=== PATIENT | male | born 1980 | race Caucasian/White ===

== ENCOUNTER 2018-04-09 22:27 | Emergency (ER) | payer SELFPAY ==
[~2018-04-09] VITALS: Ht 188 cm; Wt 107.5 kg
[~2018-04-09 22:27] MED LIST: CEPH-38 PO; DEXL60CA PO; PRM25T PO
--- OUTSIDE RECORDS SUMMARY | 2018-04-09 22:37 | XMS REPORT ---
Author Author SIVA MARLEY [facility] Address [address] [place] [address] Care Team Providers Care Special Duty Nurse Name Role Phone AYAKA SIVA Unavailable PROBLEMS Type Condition ICD9-CM Code [id number] Code Onset Dates Condition Status SNOMED Code Problem Hypothyroidism E03.9 Active 76728677 Problem GERD (gastroesophageal reflux disease) K21.9 Active 918409405 Problem Rhinitis J31.0 Active 41436310 Problem Elevated blood pressure I10 Active [id number] ALLERGIES No Known Allergies ENCOUNTERS Encounter Location Date Diagnosis [facility] [address] [facility] [id number] [id number] Dec, Hypothyroidism E03.9 ; GERD (gastroesophageal reflux disease) K21.9 ; General medical examination Z00.00 ; Elevated blood pressure I10 and Rhinitis J31.0 [facility] [address] [facility] [id number] [address] Dec, IMMUNIZATIONS No Known Immunizations SOCIAL HISTORY Never Assessed REASON FOR VISIT Establish Care- hypothyroidism, sinus drainage, feels like left ear has fluid in it Trae [facility]ONE PLAN OF CARE Activity Details Follow Up 3 months or as indicated by lab Reason:[facility] SIGNS Height 74 in 2017-12-22 Weight 237.6 lbs 2017-12-22 Temperature 96.8 degrees Fahrenheit 2017-12-22 Heart Rate 86 bpm 2017-12-22 Respiratory Rate 16 2017-12-22 BMI 30.50 kg/m2 2017-12-22 Blood pressure systolic 142 mmHg 2017-12-22 Blood pressure diastolic 82 mmHg 2017-12-22 MEDICATIONS Medication Instructions Dosage Frequency Start Date End Date Duration Status Zyrtec Allergy 10 MG Orally Once a day 1 tablet 24h Active Protonix 40 MG Orally Once a day 1 tablet 24h Active Singulair 10 mg Orally at bedtime 1 tablet Dec, 30 day(s) Active Levothyroxine Sodium 200 MCG Orally Once a day 1 tablet on an empty stomach in the morning 24h Active RESULTS No Results PROCEDURES No Known procedures INSTRUCTIONS MEDICATIONS ADMINISTERED No Known Medications MEDICAL (GENERAL) HISTORY Type Description Date Medical History Hypothyroidism Medical History GERD Surgical History tonsillectomy and adenoidectomy Surgical History FB removed from right foot
[2018-04-10] MEDS ORDERED: RX-CYCLOBENZAPRINE 10 MG (FLEXERIL) TAB PPK#3 PO STA (01:28)
[2018-04-10] MEDS ORDERED: KETOROLAC 60 MG/2 ML VIAL IM ONE (01:30)
--- NOTE | 2018-04-10 01:34 | ED Back Pain ---
General Chief Complaint: Back Problems Stated Complaint: BACK PAIN, RT ARM NUMB Nursing Triage Note: PT STATES HE HAS A HX OF BACK INJURUES FROM WEIGHT LIFTING AND WORK RELATED INJURIES, STATES TODAY AT WORK HE WAS HAVING DIFFICULTY GRASPING OBJECTS AT WORK AND EXPERIENCED NUMBNESS TO THE RIGHT ARM AND PAIN TO HIS LOWER BACK, DENIES CHEST PAIN OR SOB. Nursing Sepsis Screen: No Definite Risk Source of Information: Patient Exam Limitations: No Limitations History of Present Illness Date Seen by Provider: Apr 10, 2018 Time Seen by Provider: 01:20 Initial Comments Patient presents to ER by private conveyance by walking in with chief complaint that he's had some upper back pain for several years. Last night while at work at the [employer] he hurt his back and is progressively gotten worse. At time had some paresthesias in his right arm, tingling. No dropping anything or numbness. No bowel or bladder incontinence. No saddle anesthesia. This is the same, back pain is had but this is as bad as she's ever had it. He has not taken any Tylenol Motrin topical creams back brace, heat ice etc. He is working on getting a primary care doctor in April. He denies a cough, fevers chills Allergies and Home Medications Allergies Coded Allergies: No Known Drug Allergies (Unverified , 02/16/11) Home Medications Cephalexin Monohydrate 500 Mg Capsule, 1 EACH PO TID Prescribed by: BRITNI NUNEZ on 02/16/112012 Dexlansoprazole 60 Mg Jose Juan., 60 MG PO DAILY, (Reported) Promethazine Hcl 25 Mg Tablet, 1 TAB PO PRN, (Reported) Patient Home Medication List Home Medication List Reviewed: Yes Review of Systems Constitutional: No chills, No diaphoresis EENTM: No ear discharge, No ear pain Respiratory: No cough, No short of breath Cardiovascular: No chest pain, No edema Gastrointestinal: No abdominal pain, No constipation Past Csxinfx-Pqzdyx-Hgafdf Hx Patient Social History Alcohol Use: Denies Use Recreational Drug Use: No Smoking Status: Current Everyday Smoker Recent Foreign Travel: No Contact w/Someone Who Travel: No Recent Infectious Disease Expo: No Physical Exam Vital Signs Vital Signs - First Documented 04/09/18 23:34 Temp 98.2 Pulse 80 Resp 20 B/P (MAP) 135/99 (111) Pulse Ox 99 O2 Delivery Room Air Capillary Refill : Less Than 3 Seconds Height, Weight, BMI Height: 6'2.00" Weight: 237lbs. oz. 107.671992qa; BMI Method:Stated General Appearance: No Apparent Distress, WD/WN HEENT: PERRL/EOMI, Normal ENT Inspection, Pharynx Normal, Moist Mucous Membranes Neck: Full Range of Motion, Normal Inspection Cardiovascular: Regular Rate, Rhythm, No Edema Respiratory: Chest Non Tender, Lungs Clear, Normal Breath Sounds, No Accessory Muscle Use, No Respiratory Distress Back: Other (bilateral paraspinous muscle tenderness to palpation in the thoracic and lumbar spine) Extremity: Normal Capillary Refill, Normal Inspection Neurologic/Psychiatric: Alert, Oriented x3, No Motor/Sensory Deficits, Normal Mood/Affect, cell biology scientist II-XII Norm as Tested Progress/Results/Core Measures Results/Orders My Orders Orders - IHSAN COLEMAN Ketorolac Injection (Toradol Injection) (04/10/18 01:30) Vital Signs/I&O 04/09/18 23:34 Temp 98.2 Pulse 80 Resp 20 B/P (MAP) 135/99 (111) Pulse Ox 99 O2 Delivery Room Air Blood Pressure Mean: 111 Progress Progress Note : Time: 01:32 Progress Note No red flag signs. He has some paraspinous muscle strain/sprain as well as pain related to her work. We are starting him on NSAIDs, Tylenol, heat, back brace, muscle relaxants and establish care with primary care. Shot of Toradol and take- home pack of cyclobenzaprine. Departure Impression Primary Impression: Back strain Qualified Codes: S39.012A - Strain of muscle, fascia and tendon of lower back , initial encounter Additional Impression: Thoracic back pain Qualified Codes: M54.6 - Pain in thoracic spine; G89.29 - Other chronic pain Disposition: 01 HOME, SELF-CARE Condition: Stable Departure-Patient Inst. Decision time for Depature: 01:33 Referrals: NO,LOCAL PHYSICIAN (PCP/Family) Primary Care Physician Patient Instructions: Upper Back Pain (DC) Add. Discharge Instructions: Apply some heat to your back, get some rest. Massage or a visit to the chiropractor to be useful. Wear a back brace. Use Tylenol 1000 mg every 8 hours as needed for breakthrough back pain. If you have muscle spasms in your back you can use the cyclobenzaprine 1 tablet every 8 hours but will cause drowsiness. Start taking Naprosyn ltok-jxr-agacgkn 2 tablets twice a day for the next 2 weeks on a schedule or you can use the prescription tablets twice a day. If not seeing improvement in 7-10 days then you can follow-up with primary care for reevaluation and moving on to the next step up therapy. All discharge instructions reviewed with patient and/or family. Voiced understanding. Scripts Naproxen (Naprosyn) 500 Mg Tablet 500 MG PO BID for 14 Days, #30 TAB 0 Refills Prov: IHSAN COLEMAN 04/10/18 Cyclobenzaprine HCl (Cyclobenzaprine HCl) 10 Mg Tablet 10 MG PO Q8H PRN for SPASMS, #15 TAB 0 Refills Prov: IHSAN COLEMAN 04/10/18 Work/School Note: Work Release Form Date Seen in the Emergency Department: Apr 10, 2018 Return to Work: Apr 10, 2018 Restrictions: Need Release from Doctor Other Restrictions Listed Below: Light duty no lifting over 20 pounds until 04/13/18. IHSAN COLEMAN Apr 10, 2018 01:34
[2018-04-10] MEDS ORDERED: CYCL10TA9 PO (01:35)
[2018-04-10] MEDS ORDERED: NAPR-1071 PO (01:35)
[2018-04-10 01:45] VITALS: BP 125/88
== END 2018-04-10 01:45 | disposition home or self-care (01) ==
LOC: EDUNIT# 22:27 → ER 22:29
DX: S39.012A Strain of muscle, fascia and tendon of lower back, initial encounter (principal); M54.6 Pain in thoracic spine; F17.200 Nicotine dependence, unspecified, uncomplicated; X50.0XXA Overexertion from strenuous movement or load, initial encounter; Y92.59 Other trade areas as the place of occurrence of the external cause; Y99.0 Civilian activity done for income or pay
CPT/HCPCS: 96372; 99284

== ENCOUNTER 2020-09-23 14:52 | Emergency (ER) | payer SELFPAY ==
[~2020-09-23] VITALS: Ht 185 cm; Wt 110.0 kg
[~2020-09-23 14:52] MED LIST changes: +CYCL10TA9 PO; +NAPR-1071 PO
[2020-09-23 15:15] VITALS: BP 135/78
[2020-09-23] MEDS ORDERED: DOXY100T2 PO (15:25)
[2020-09-23] MEDS ORDERED: ACHD5005 PO (15:25)
--- NOTE | 2020-09-23 15:25 | ED Integumentary General ---
General Stated Complaint: INGROWN HAIR, COVID EXPOSURE Source: patient Exam Limitations: no limitations History of Present Illness Date Seen by Provider: Sep 23, 2020 Time Seen by Provider: 15:22 Initial Comments To ER with an abscess to the left axilla. He was given a topical antibiotic by a provider at [facility]. No fevers or chills. His stepson is Covid positive. He is on quarantine at home. He has no fevers or chills cough shortness of breath runny nose sore throat diarrhea or body aches. He has been tested twice over the course of the past week each time has been negative. Timing/Duration: constant Severity: moderate Location: extremities (Left axilla) Possible Cause: no cause identified Associated Symptoms: denies symptoms Allergies and Home Medications Allergies Coded Allergies: No Known Drug Allergies (Unverified , 02/16/11) Home Medications Cephalexin Monohydrate 500 Mg Capsule, 1 EACH PO TID Prescribed by: BRITNI NUNEZ on 02/16/112012 Cyclobenzaprine HCl 10 Mg Tablet, 10 MG PO Q8H PRN for SPASMS Prescribed by: IHSAN COLEMAN on 04/10/18134 Dexlansoprazole 60 Mg Jose Juan., 60 MG PO DAILY, (Reported) Naproxen 500 Mg Tablet, 500 MG PO BID Prescribed by: IHSAN COLEMAN on 04/10/18134 Promethazine Hcl 25 Mg Tablet, 1 TAB PO PRN, (Reported) Patient Home Medication List Home Medication List Reviewed: Yes Review of Systems Review of Systems Constitutional: see HPI EENTM: see HPI Respiratory: no symptoms reported Cardiovascular: no symptoms reported Genitourinary: no symptoms reported Musculoskeletal: no symptoms reported Skin: see HPI Psychiatric/Neurological: No Symptoms Reported Endocrine: No Symptoms Reported Past Rrgrpcw-Mrlobi-Xwgpfz Hx Seasonal Allergies Seasonal Allergies: No Past Medical History Surgeries: No Respiratory: No Cardiac: No Neurological: No Genitourinary: No Gastrointestinal: No Musculoskeletal: No Endocrine: No HEENT: No Cancer: No Psychosocial: No Integumentary: No Blood Disorders: No Physical Exam Vital Signs Capillary Refill : General Appearance: WD/WN, no apparent distress HEENT: PERRL/EOMI, normal ENT inspection Neck: non-tender, full range of motion Respiratory: no respiratory distress, no accessory muscle use Extremities: normal range of motion, non-tender Neurologic/Psychiatric: alert, normal mood/affect, oriented x 3 Skin: normal color Skin Problem Location: other (Small dime sized fluctuant abscess left axilla) Skin Problem Character: abscess Progress/Results/Core Measures Results/Orders My Orders Orders - NISHI PUENTE APRN Wound Culture (09/23/20 15:21) Lidocaine 1% Inj 20 Ml (Xylocaine 1% Inj (09/23/20 15:30) Departure Communication (Admissions) Anesthetized with 1 mL 1% lidocaine without epinephrine. Incision made with 11 blade scalpel. Moderate amount of purulent material expressed. Culture collected and sent to lab. Covered with gauze. Impression Primary Impression: Axillary abscess Disposition: HOME, SELF-CARE Condition: Stable Departure-Patient Inst. Decision time for Depature: 15:23 Referrals: NO,LOCAL PHYSICIAN (PCP/Family) Primary Care Physician Patient Instructions: Abscess Incision and Drainage ED Add. Discharge Instructions: 1. Warm compresses to the area. Pain medication as directed. Antibiotics as directed. Follow-up with your doctor next week. Scripts Doxycycline Hyclate (Doxycycline Hyclate) 100 Mg Tablet 100 MG PO BID, #14 TAB 0 Refills Prov: NISHI PUENTE APRN 09/23/20 Hydrocodone/Acetaminophen (Hydrocodone-Acetamin 5-325 mg) 1 Each Tablet 1 TAB PO Q4H PRN for PAIN-MODERATE (5-7), #10 TAB Prov: NISHI PUENTE APRN 09/23/20 NISHI PUENTE APRN Sep 23, 2020 15:25
[2020-09-23] MEDS: LIDOCAINE 1% INJ 20 ML 20 ML VIAL INJ ONE ×2 (15:35→16:04)
== END 2020-09-23 15:35 | disposition home or self-care (01) ==
LOC: EDUNIT# 14:52 → ER 14:54
DX: L02.412 Cutaneous abscess of left axilla (principal); Z20.822 Contact with and (suspected) exposure to COVID-19
CPT/HCPCS: 10060; 87070; 87077; 87186; 87205

== ENCOUNTER 2020-11-21 10:08 | Emergency (ER) | payer SELFPAY ==
[~2020-11-21] VITALS: Ht 185 cm; Wt 105.0 kg
[~2020-11-21 10:08] MED LIST changes: +ACHD5005 PO; +DOXY100T2 PO
[2020-11-21 10:22] VITALS: BP 148/93
[2020-11-21] MEDS ORDERED: METH4TAB10 PO (10:50)
--- NOTE | 2020-11-21 10:50 | ED Upper Extremity ---
General Chief Complaint: Upper Extremity Stated Complaint: R SHOULDER PAIN Source: patient Exam Limitations: no limitations History of Present Illness Date Seen by Provider: Nov 21, 2020 Time Seen by Provider: 10:47 Initial Comments To ER with right shoulder pain. He had an injury 8 to 9 years ago, today upon awakening had increased pain in the right shoulder with tingling down the right arm. No known injury. He is taken the diclofenac this morning without much relief. No fevers or chills. He receives injections into the shoulder and has received several. They do help. His most recent one was about 3 months ago. Primary care told him they were not comfortable doing any additional steroid injections and he has an appointment with orthopedics Waqar Cisneros here in [place] on Thursday to further evaluate this. Onset: just prior to arrival Method of Injury: unknown Allergies and Home Medications Allergies Coded Allergies: No Known Drug Allergies (Unverified , 02/16/11) Patient Home Medication List Home Medication List Reviewed: Yes Cephalexin Monohydrate (Keflex) 500 Mg Capsule, 1 EACH PO TID Prescribed by: BRITNI NUNEZ on 02/16/112012 Cyclobenzaprine HCl (Cyclobenzaprine HCl) 10 Mg Tablet, 10 MG PO Q8H PRN for SPASMS Prescribed by: IHSAN COLEMAN on 04/10/18134 Dexlansoprazole (Dexilant) 60 Mg Jose Juan., 60 MG PO DAILY, (Reported) Entered as Reported by: MANISH VALENCIA on 02/16/111851 Doxycycline Hyclate (Doxycycline Hyclate) 100 Mg Tablet, 100 MG PO BID Prescribed by: NISHI PUENTE on 09/23/20 152 Hydrocodone/Acetaminophen (Hydrocodone-Acetamin 5-325 mg) 1 Each Tablet, 1 TAB PO Q4H PRN for PAIN-MODERATE (5-7) Prescribed by: NISHI PUENTE on 09/23/20 152 Methylprednisolone (Methylprednisolone Dose Pack) 4 Mg Tab.dsDayanapk, 4 MG PO UD Prescribed by: NISHI PUENTE on 11/21/20 105 Naproxen (Naprosyn) 500 Mg Tablet, 500 MG PO BID Prescribed by: IHSAN COLEMAN on 04/10/18134 Promethazine Hcl (Phenergan 25 Mg) 25 Mg Tablet, 1 TAB PO PRN, (Reported) Entered as Reported by: MANISH VALENCIA on 1/1/12 1852 Review of Systems Constitutional: see HPI EENTM: see HPI Respiratory: no symptoms reported Cardiovascular: no symptoms reported Genitourinary: no symptoms reported Musculoskeletal: see HPI Skin: no symptoms reported Psychiatric/Neurological: No Symptoms Reported Past Bcwkohc-Hlloqe-Ascbll Hx Seasonal Allergies Seasonal Allergies: No Past Medical History Surgeries: No Respiratory: No Cardiac: No Neurological: No Genitourinary: No Gastrointestinal: No Musculoskeletal: No Endocrine: No HEENT: No Cancer: No Psychosocial: No Integumentary: No Blood Disorders: No Physical Exam Vital Signs Capillary Refill : Height, Weight, BMI Height: 6'2.00" Weight: 237lbs. oz. 107.522764sh; 32.00 BMI Method:Stated General Appearance: WD/WN, no apparent distress HEENT: PERRL/EOMI, normal ENT inspection Neck: non-tender, full range of motion Respiratory: no respiratory distress, no accessory muscle use Shoulder: normal inspection, limited ROM, pain Elbow/Forearm: normal inspection, non-tender Wrist: Yes normal inspection, Yes non-tender Hand: normal inspection, non-tender Neurologic/Psychiatric: alert, normal mood/affect Skin: normal color, warm/dry Progress/Results/Core Measures Results/Orders My Orders Orders - NISHI PUENTE APRN Shoulder, Right, 3 Views (11/21/20 10:46) Departure Communication (Admissions) NAME: [facility] REC#: [id number] PT STATUS: REG ER : 1980 PHYSICIAN: NISHI PUENTE APRN ADMIT DATE: 11/21/20/ER Draft Date of Exam:11/21/20 SHOULDER, RIGHT, 3 VIEWS INDICATION: Shoulder pain. EXAMINATION: Right shoulder from 11/21/2020. FINDINGS: Three views of the shoulder. There is sclerosis at the greater tuberosity. Findings consistent with rotator cuff tendinopathy. No fracture or dislocation appreciated. Remaining osseous structures are intact. Soft tissues are unremarkable. Visualized lung clear. IMPRESSION: 1. Findings of rotator cuff tendinopathy. No acute osseous abnormality. Dictated on workstation # [id number] Dict: 11/21/20 1140 Trans: 11/21/20 1145 [id number] [id number] Interpreted by: DARA BERG MD Electronically signed by: Impression Primary Impression: Internal derangement of shoulder Disposition: 01 HOME, SELF-CARE Condition: Stable Departure-Patient Inst. Decision time for Depature: 10:49 Referrals: NO,LOCAL PHYSICIAN (PCP) Primary Care Physician KEYSHAWN AGUILAR MD Patient Instructions: How to Use a Shoulder Sling Scripts Methylprednisolone (Methylprednisolone Dose Pack) 4 Mg Tab.ds.pk 4 MG PO UD for 6 Days, #21 PKG PER DOSE PACK INSTRUCTIONS Prov: NISHI PUENTE APRN 11/21/20 Work/School Note: Work Release Form Date Seen in the Emergency Department: Nov 21, 2020 Return to Work: Nov 24, 2020 NISHI PUENTE APRN Nov 21, 2020 10:50
--- NOTE | 2020-11-21 11:45 | Diagnostic Imaging Report ---
INDICATION: Shoulder pain. EXAMINATION: Right shoulder from 11/21/2020. FINDINGS: Three views of the shoulder. There is sclerosis at the greater tuberosity. Findings consistent with rotator cuff tendinopathy. No fracture or dislocation appreciated. Remaining osseous structures are intact. Soft tissues are unremarkable. Visualized lung clear. IMPRESSION: 1. Findings of rotator cuff tendinopathy. No acute osseous abnormality. Dictated by: Dictated on workstation # [id number]
== END 2020-11-21 19:04 | disposition home or self-care (01) ==
LOC: EDUNIT# 10:08 → ER 10:09
DX: M24.9 Joint derangement, unspecified (principal)
CPT/HCPCS: 73030; 99282; A4565

== ENCOUNTER → 2020-12-10 | Outpatient (CLI) | payer SELFPAY ==
[~2020-12-10] MED LIST changes: +METH4TAB10 PO
--- NOTE | 2020-12-10 12:33 | Diagnostic Imaging Report ---
INDICATION: Pre-MRI screening. TIME OF EXAM: 8:48 AM 2 views of the orbits were obtained. No definite radiopaque orbital foreign body is detected. Paranasal sinuses are clear. IMPRESSION: No radiopaque orbital foreign body is detected. Dictated by: Dictated on workstation # [id number]
== END ==
LOC: RAD 08:19
PROVIDERS: ATTEND Nurse Practitioner
DX: S43.431A Superior glenoid labrum lesion of right shoulder, initial encounter (principal); X58.XXXA Exposure to other specified factors, initial encounter